=== PATIENT | male | born 1990 | race Caucasian/White ===

== ENCOUNTER 2020-08-10 23:07 | Emergency (ER) | payer MEDICARE, OTHER ==
[~2020-08-10] VITALS: Ht 185.4 cm; Wt 127.3 kg
[2020-08-10] MEDS ORDERED: NS 1,000 ML IV ONE (23:30)
[2020-08-10 23:35] LABS: BASO % 0.2 % (0.0-1.0); EOS # 0.1 10^3/uL (0.0-0.5); EOS % 0.6 % (0.0-3.0); HEMATOCRIT 47.1 % (42.0-52.0); HEMOGLOBIN 15.9 g/dl (13.5-17.5); LYMPH # 1.6 10^3/uL (1.5-5.0); LYMPH % 13.1 % (24.0-44.0); MEAN CORPUSCULAR HEMOGLOBIN 27.9 pg (27.0-33.0); MEAN CORPUSCULAR HGB CONC 33.8 g/dl (32.0-36.5); MEAN CORPUSCULAR VOLUME 82.6 fl (80.0-96.0); MONO # 1.1 10^3/uL (0.0-0.8); MONO % 8.7 % (0.0-5.0); NEUTROPHILS # 9.6 10^3/uL (1.5-8.5); NEUTROPHILS % 76.8 % (36.0-66.0); PLATELET COUNT, AUTOMATED 216 10^3/uL (150-450); WHITE BLOOD COUNT 12.4 10^3/uL (4.0-10.0)
--- NOTE | 2020-08-10 23:51 | REPVR ---
PROCEDURE INFORMATION: Exam: XR Chest, 1 View Exam date and time: 08/10/2020 11:32 PM Age: 29 years old Clinical indication: Other: Chest pain TECHNIQUE: Imaging protocol: XR of the chest Views: 1 view. COMPARISON: CR Chest, 2 view PA, Lat 07/23/2015 6:58 PM FINDINGS: Lungs: There is decreased inflation of the lungs. No focal infiltrates. Pleural space: Unremarkable. No pleural effusion. No pneumothorax. Heart/Mediastinum: Unremarkable. No cardiomegaly. Bones/joints: Unremarkable. IMPRESSION: Negative poor inspiratory chest with little change from 07/23/2015. Electronically signed by: Ismael Millan On 08/10/2020 23:50:34 PM
[2020-08-10 23:52] LABS: INR 0.92; PROTHROMBIN TIME 12.5 SECONDS (12.5-14.3)
[2020-08-11 00:23] LABS: ALBUMIN 3.6 GM/DL (3.2-5.2); ALT/SGPT 45 U/L (12-78); BILIRUBIN,DIRECT < 0.1 MG/DL (0.0-0.2); BILIRUBIN,TOTAL 0.4 MG/DL (0.2-1.0); CK-MB VALUE MASS 1.8 NG/ML (<3.6); CPK CREATINE PHOSPHOKINASE 191 U/L (39-308); FREE T4 0.83 NG/DL (0.76-1.46); LIPASE 123 U/L (73-393); MAGNESIUM LEVEL 1.9 MG/DL (1.8-2.4); MB/CK RELATIVE INDEX 0.94 (< OR =4); NT-PRO BNP 13 PG/ML (<125); THYROID STIMULATING HORMONE 0.471 uIU/ML (0.358-3.740); TOTAL PROTEIN 7.3 GM/DL (6.4-8.2); TROPONIN I < 0.02 NG/ML (< 0.10)
[2020-08-11 01:00] LABS: AMPHETAMINES LEVEL URINE NEGATIVE (NEGATIVE); BARBITURATES URINE NEGATIVE (NEGATIVE); BENZODIAZEPINES URINE NEGATIVE (NEGATIVE); CANNABINOIDS URINE POSITIVE (NEGATIVE); COCAINE METABOLITE URINE NEGATIVE (NEGATIVE); METHADONE URINE NEGATIVE (NEGATIVE); OPIATES URINE NEGATIVE (NEGATIVE); PHENCYCLIDINE URINE NEGATIVE (NEGATIVE)
[2020-08-11] MEDS ORDERED: ISOVUE-370 76% 100ML VIAL As Ordered ONE (01:27)
[2020-08-11] MEDS ORDERED: NS 1,000 ML IV ONE (01:30)
--- NOTE | 2020-08-11 02:17 | REPVR ---
PROCEDURE INFORMATION: Exam: CT Angiography Chest With Contrast Exam date and time: 08/11/2020 1:20 AM Age: 29 years old Clinical indication: Other: Tachycardia; Additional info: Tachycradia, leg pain, travel TECHNIQUE: Imaging protocol: Computed tomographic angiography of the chest with intravenous contrast. 3D rendering (Not supervised by radiologist): MIP and/or 3D reconstructed images were created by the technologist. Radiation optimization: All CT scans at this facility use at least one of these dose optimization techniques: automated exposure control; mA and/or kV adjustment per patient size (includes targeted exams where dose is matched to clinical indication); or iterative reconstruction. Contrast material: ISO; Contrast volume: 75 ml; Contrast route: INTRAVENOUS (IV); COMPARISON: CR PORTABLE CHEST X-RAY 08/10/2020 11:30 PM FINDINGS: Pulmonary arteries: The main pulmonary artery measures 25 mm. No central pulmonary embolism is identified. Aorta: The ascending thoracic aorta measures 33 mm. Lungs: Scattered bilateral pulmonary nodules or possibly focal areas of consolidation which are greatest in the posterior left upper lobe which is irregular and measures approximately the 13 x 8 x 11 mm. Numerous additional nodules or rounded densities are noted bilaterally with some appearing more as ground-glass nodules, particularly in the posterior left lower lobe measuring 8 mm in diameter. Pleural space: Unremarkable. No pneumothorax. No pleural effusion. Heart: Unremarkable. No cardiomegaly. No pericardial effusion. Mediastinal space: There is soft tissue conforming to the anterior mediastinum consistent with residual thymic tissue. There is motion artifact with image degradation in the lungs and mediastinum. Lymph nodes: Unremarkable. No enlarged lymph nodes. Liver: The liver attenuation is 30 Hounsfield units and the spleen is 63 Hounsfield units. Bones/joints: Unremarkable. No acute fracture. Soft tissues: Unremarkable. IMPRESSION: 1. Numerous scattered bilateral pulmonary nodules which are greatest in the posterior aspect of the left upper lobe. If the patient does not have known cancer, follow up should be based on clinical information because of the low risk of cancer in this age group. (Reference: Suzi) 2. Otherwise negative CTA chest. No central pulmonary embolism is identified. REFERENCES: Suzi Landin et al. Guidelines for Management of Incidental Pulmonary Nodules Detected on CT Images: From the Fleischner Society 2017. Radiology. 2017;284(1):228-243. Electronically signed by: Ismael Millan On 08/11/2020 02:16:51 AM
[2020-08-11] MEDS ORDERED: [UNRECOGNIZED DRUG - OTHER] ×2 (03:01→03:04)
[2020-08-11 03:15] VITALS: BP 133/69
--- NOTE | 2020-08-11 08:09 | ECGEPIP ---
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
--- NOTE | 2020-08-12 08:07 | ED PDOC ---
Post-Departure Follow-Up edwin nguyen faxed formal report of cta chest for fu Carlos Posada MD Aug 12, 2020 08:07
== END 2020-08-11 03:32 | disposition home or self-care (01) ==
LOC: M ED 23:07
DX: R00.2 Palpitations (principal); F41.9 Anxiety disorder, unspecified; K21.9 Gastro-esophageal reflux disease without esophagitis; Z88.0 Allergy status to penicillin; F17.210 Nicotine dependence, cigarettes, uncomplicated
CPT/HCPCS: 36415; 71045; 71275; 80047; 80076; 80307; 82550; 82553; 83605; 83690; 83735; 83880; 84439; 84443; 84484; 85025; 85610; 85730; 93005; 93041; 94760; 99285; Q9967

== ENCOUNTER → 2021-01-05 | Outpatient (CLI) | payer MEDICARE, MEDICAID ==
[~2021-01-05] MED LIST: [UNRECOGNIZED DRUG - OTHER]
--- NOTE | 2021-01-05 10:53 | REP ---
INDICATION: ABN FINDING OF LUNG. COMPARISON: Chest CT studies dated 08/11/2020 and outside study dated 11/28/2020. TECHNIQUE: CT of the chest without IV contrast. FINDINGS: There are the following lung nodules. These are all unchanged from the prior studies. Image 22, left upper lobe, 8 mm. Image 37, left upper lobe, 5 mm. Image 40, right lower lobe medially, 6 mm. Image 43, left upper lobe, 5 mm. Image 52, right lower lobe medially, 8 mm. Image 60, left lower lobe, 9 mm. Image 63, right lower lobe, 7 mm. Image 67, right lower lobe, 7 mm. Image 69, right lower lobe, 11 mm. There are no new lung nodules. There are no enlarging lung nodules. There are subcarinal lymph nodes measuring up to 2.1 cm short axis. This is unchanged from 11/28/2020 but not definitely present on 08/11/2020 There is no axillary lymph node enlargement. The study is insensitive for hilar lymph node enlargement in the absence of IV contrast. The thoracic aorta is unremarkable. Cardiac size is normal. There is no pericardial effusion. Upper abdomen: There is no adrenal nodule or mass. The spleen is enlarged measuring 16 cm AP diameter. This is unchanged. The pancreas is unremarkable. IMPRESSION: Multiple stable lung nodules as identified. There are no new lung nodules. There are no enlarging nodules. Subcarinal lymph nodes unchanged from 11/28/2020 a definite present on 08/11/2020. Splenomegaly. <Electronically signed by Tomas Garrison > 01/05/21 [id number]
== END ==
LOC: M RAD 07:07
PROVIDERS: ATTEND Physician Assistant
DX: R91.8 Other nonspecific abnormal finding of lung field (principal)

== ENCOUNTER → 2021-01-11 | Outpatient (REF) | payer MEDICARE, MEDICAID ==
[2021-01-11 17:44] LABS: BASO # 0.1 10^3/uL (0.0-0.2); BASO % 0.6 % (0.0-1.0); EOS # 0.1 10^3/uL (0.0-0.5); EOS % 1.4 % (0.0-3.0); HEMOGLOBIN 17.1 g/dl (13.5-17.5); LYMPH # 1.3 10^3/uL (1.5-5.0); LYMPH % 14.7 % (24.0-44.0); MEAN CORPUSCULAR HEMOGLOBIN 27.3 pg (27.0-33.0); MEAN CORPUSCULAR HGB CONC 33.5 g/dl (32.0-36.5); MEAN CORPUSCULAR VOLUME 81.5 fl (80.0-96.0); MONO # 0.6 10^3/uL (0.0-0.8); MONO % 6.9 % (2.0-8.0); NEUTROPHILS # 6.8 10^3/uL (1.5-8.5); NEUTROPHILS % 75.8 % (36.0-66.0); PLATELET COUNT, AUTOMATED 218 10^3/uL (150-450); RED BLOOD COUNT 6.26 10^6/uL (4.30-6.10)
[2021-01-11 18:16] LABS: ALBUMIN 3.9 GM/DL (3.2-5.2); ALT/SGPT 40 U/L (12-78); BILIRUBIN,DIRECT 0.1 MG/DL (0.0-0.2); BILIRUBIN,TOTAL 0.4 MG/DL (0.2-1.0); C REACTIVE PROTEIN QUANTITATIV 0.79 MG/DL (0.00-0.30); CALCIUM LEVEL 9.2 MG/DL (8.5-10.1); CREATININE FOR GFR 0.82 MG/DL (0.70-1.30); ERYTHROCYTE SEDIMENTATION RATE 5 mm/hr (0-15); GLOMERULAR FILTRATION RATE > 60.0 (>60); RHEUMATOID FACTOR QUANT < 10.0 IU/ML (<15.0); TOTAL PROTEIN 7.3 GM/DL (6.4-8.2)
== END ==
LOC: M LAB REF 16:51
PROVIDERS: ATTEND Physician Assistant
DX: R91.8 Other nonspecific abnormal finding of lung field (principal)

== ENCOUNTER → 2021-02-04 | Outpatient (CLI) | payer MEDICARE, MEDICAID ==
[~2021-02-04] MED LIST changes: +ALBU8.5H; +CITA40TA4; +PANT40TA29; +TRAM50TA2; +TRAZ-252
== END ==
LOC: M LABSMTC 08:30
PROVIDERS: ATTEND Anesthesiology
DX: Z01.818 Encounter for other preprocedural examination (principal); Z20.822 Contact with and (suspected) exposure to COVID-19

== ENCOUNTER 2021-02-08 06:21 | Day surgery (SDC) | payer MEDICARE, MEDICAID ==
[~2021-02-08] VITALS: Ht 185.4 cm; Wt 122.9 kg
[2021-02-08] MEDS ORDERED: propofoL 200 MG/20 ML VIAL ONE (06:22)
[2021-02-08] MEDS ORDERED: MIDAZOLAM INJ 2MG/2ML VIAL (J2250 PER 1MG) ONE (06:22)
[2021-02-08] MEDS ORDERED: ACETAMINOPHEN 1000MG 100ML IV BTL (OFIRMEV) (J0131 PER 10MG) ONE (06:22)
[2021-02-08] MEDS ORDERED: ROCURONIUM BROMIDE 50 MG/5 ML VIAL ONE (06:22)
[2021-02-08] MEDS ORDERED: LIDOCAINE 2% 100MG/5ML SDV (FOR ANES.) ONE (06:22)
[2021-02-08] MEDS ORDERED: dexameTHASONE 4 MG/ML 1ML VIAL (J1100 PER 1MG) ONE (06:22)
[2021-02-08] MEDS ORDERED: ONDANSETRON 4MG/2ML VIAL ONE (06:22)
[2021-02-08] MEDS ORDERED: fentaNYL 100 MCG/2 ML INJECTION (J3010) ONE (06:22)
[2021-02-08] MEDS ORDERED: LIDOCAINE 4% INJ 5ML AMP NEB ONE (07:20)
[2021-02-08] MEDS ORDERED: ALBUTEROL SULFATE 2.5 MG/0.5 ML INH NEB SOLN NEB ONE (07:20)
[2021-02-08] MEDS ORDERED: SUGAMMADEX SODIUM 500 MG/5 ML VIAL (BRIDION) As Ordered ONE (07:25)
[2021-02-08] MEDS ORDERED: THROMBIN SOLN 5,000 UNITS VIAL As Ordered ONE (07:26)
[2021-02-08] MEDS ORDERED: EPINEPHrine 1MG/10ML SYRINGE 1.5IN As Ordered ONE (07:26)
[2021-02-08] MEDS ORDERED: CETACAINE SPRAY 5GM As Ordered ONE (07:26)
[2021-02-08] MEDS ORDERED: LR 1,000 ML IV ONE (07:34)
[2021-02-08] MEDS ORDERED: LIDOCAINE 1% MDV 20ML VIAL SQ PRN (07:34)
[2021-02-08] MEDS ORDERED: fentaNYL 100 MCG/2 ML INJECTION (J3010) IV PRN (08:50)
[2021-02-08] MEDS ORDERED: PERCOCET 5MG/325MG TAB PO PRN (08:50)
[2021-02-08] MEDS ORDERED: METOCLOPRAMIDE INJ 10MG/2ML VIAL (J2765 PER 1) IV PRN (08:50)
[2021-02-08] MEDS ORDERED: ONDANSETRON 4MG/2ML VIAL IV PRN (08:50)
[2021-02-08] MEDS ORDERED: LR 1,000 ML IV SCH (08:50)
--- NOTE | 2021-02-08 08:57 | RO ---
OPERATIVE NOTE DATE OF OPERATION: 02/08/2021 PREOPERATIVE DIAGNOSIS: Mediastinal adenopathy. POSTOPERATIVE DIAGNOSIS: Mediastinal adenopathy. FINDINGS: Splaying of the anne. PROCEDURE: Bronchoscopy with endobronchial ultrasound and fine needle aspiration and bronchoalveolar lavage. PROCEDURALIST: Adriano English D.O. BANK VAULT CUSTODIAN: None. SPECIMENS OBTAINED: 1. FNA subcarinal and left hilar node for cytology. 2. FNA left hilar node for culture fungal and bacterial. 3. Right middle lobe bronchoalveolar lavage (BAL) for bacterial, fungal, and AFB. ANESTHESIA: General; please refer to their records for details. ESTIMATED BLOOD LOSS: Minimal. DRAINS: None. DESCRIPTION OF PROCEDURE: The patient was brought back to OR #8, after informed consent was reviewed in the preoperative area, he was placed in the supine position. Anesthesia intubated the patient with an 8.5 endotracheal tube and the case was handed over to me. A time-out was performed with two patient identifiers, identifying the correct site and correct procedure. His name and date of were correlated with radiology in the room. 1T190 bronchoscope was then inserted endotrachealy. Trachea was midline. Anne was slightly splayed. Right and left mainstem bronchi were otherwise normal with minimal secretions. RB1 through 10 was normal without endobronchial lesions and some minimal splaying of the right hilum. The left mainstem bronchus was normal. LB1 through 10 was normal without endobronchial lesion. Bronchoscope was removed and an endobronchial linear scope was then inserted. Upon viewing the subcarinal node from the right, there was a very large subcarinal node measuring approximately 2 cm. FNAs were taken of this abnormality. It did appear that the samples were necrotic, pus-like. I then took an FNA for culture. After adequate sampling, I then went to the right hilar area where there was not any significant node for sampling. I then went to the left hilar area where there was an enlarged lymph node approximately 1 cm in size. FNA was taken of this lesion. Again, more necrotic-like material resulted. No collection was sent for RPMI was there did not appear to be a large amount of viable cells and did not appear to be lymphoma-like. Cells collected for cell block. After adequate sampling, endobronchial ultrasound was removed. The 1T190 bronchoscope was reinserted and hemostasis was assured. I then performed a BAL of the right middle lobe to send off for culture both bacterial, fungal, and AFB. The bronchoscope was removed, the patient was extubated, and is in recovery. A postprocedure chest x-ray is pending. [facility]
[2021-02-08 09:09] VITALS: BP 138/63
--- NOTE | 2021-02-08 09:11 | REP ---
INDICATION: POST OP BRONCH IN PACU 9. COMPARISON: 08/10/2020. TECHNIQUE: Single portable AP view of the chest was performed. FINDINGS: There is no pneumothorax. There is no infiltrate in either lung. Cardiac silhouette is unchanged. There is a prominent left hilar shadow. IMPRESSION: No pneumothorax status post bronchoscopy. <Electronically signed by Tomas Livingston > 02/08/21 [id number]
== END 2021-02-08 09:30 | disposition home or self-care (01) ==
LOC: M SDC 06:21
PROVIDERS: ATTEND Internal Medicine Pulmonary Disease
DX: R59.0 Localized enlarged lymph nodes (principal); R91.8 Other nonspecific abnormal finding of lung field; K21.9 Gastro-esophageal reflux disease without esophagitis; F17.218 Nicotine dependence, cigarettes, with other nicotine-induced disorders; F41.9 Anxiety disorder, unspecified; F32.9 Major depressive disorder, single episode, unspecified; M17.11 Unilateral primary osteoarthritis, right knee; R00.2 Palpitations; R06.83 Snoring; R06.02 Shortness of breath; Z79.899 Other long term (current) drug therapy; Z88.0 Allergy status to penicillin
CPT/HCPCS: 31624; 31629; 31652; 71045; 87070; 87077; 87102; 87116; 87205; 87206; 88173; 88305; 88312; J0131; J1100; J2250; J2405; J3010

== ENCOUNTER → 2021-07-18 | Outpatient (CLI) | payer MEDICARE, MEDICAID ==
--- NOTE | 2021-07-18 16:38 | REP ---
INDICATION: HISTOPLASMOSIS, UNSPECIFIED COMPARISON: Multiple prior examinations dating through 08/11/2020 TECHNIQUE: Axial noncontrast images from the thoracic inlet to the upper abdomen with coronal and sagittal reformations. This CT examination was performed using the following dose reduction techniques: Automated exposure control, adjustment of mA and/or kv according to the patient's size, and use of iterative reconstruction technique. FINDINGS: Lung keyes are well aerated and again demonstrate scattered bilateral noncalcified nodules measuring up to approximately 9.2 mm in the subpleural left lower lobe (series 201; image 55) along with significant mediastinal and hilar adenopathy consistent with the given history of histoplasmosis. No acute consolidation. No effusion. No pneumothorax. Tracheobronchial tree is patent. Further evaluation of the mediastinum demonstrates normal thoracic aorta, pulmonary vasculature, and heart/pericardium. Musculoskeletal structures are intact. IMPRESSION: Pulmonary nodules and adenopathy similar to prior examination and consistent with the given history of histoplasmosis. <Electronically signed by Justus Bentley > 07/18/21 1817
== END ==
LOC: M RAD 16:12
PROVIDERS: ATTEND Internal Medicine Pulmonary Disease
DX: R91.8 Other nonspecific abnormal finding of lung field (principal); B39.9 Histoplasmosis, unspecified

== ENCOUNTER 2022-11-19 14:29 | Emergency (ER) | payer MEDICARE, MEDICAID ==
[~2022-11-19] VITALS: Ht 182.9 cm; Wt 131.7 kg
[~2022-11-19 14:29] MED LIST changes: -CITA40TA4; +CITA40TA7
[2022-11-19 15:28] LABS: BASO % 0.4 % (0.0-1.0); EOS # 0.1 10^3/uL (0.0-0.5); EOS % 0.9 % (0.0-3.0); HEMATOCRIT 48.7 % (42.0-52.0); HEMOGLOBIN 16.6 g/dl (13.5-17.5); LYMPH # 2.2 10^3/uL (1.5-5.0); LYMPH % 21.2 % (24.0-44.0); MEAN CORPUSCULAR HEMOGLOBIN 28.6 pg (27.0-33.0); MEAN CORPUSCULAR HGB CONC 34.1 g/dl (32.0-36.5); MONO % 9.1 % (2.0-8.0); NEUTROPHILS # 7.2 10^3/uL (1.5-8.5); PLATELET COUNT, AUTOMATED 210 10^3/uL (150-450); WHITE BLOOD COUNT 10.6 10^3/uL (4.0-10.0)
[2022-11-19 15:51] LABS: ALBUMIN 3.9 G/DL (3.2-5.2); ALKALINE PHOSPHATASE 118 U/L (46-116); ALT/SGPT 41 U/L (7.0-40); AST/SGOT 30 U/L (<34); BILIRUBIN,DIRECT 0.1 MG/DL (<0.4); BILIRUBIN,TOTAL 0.6 MG/DL (0.3-1.2); BLOOD UREA NITROGEN 15 MG/DL (9-23); CALCIUM LEVEL 9.8 MG/DL (8.5-10.1); CARBON DIOXIDE LEVEL 29 MMOL/L (20-31); CHLORIDE LEVEL 106 MMOL/L (98-107); CK-MB VALUE MASS < 1.0 NG/ML (<3.6); CREATININE FOR GFR 0.91 MG/DL (0.70-1.30); GLOMERULAR FILTRATION RATE > 60.0 (>60); GLUCOSE, FASTING 94 MG/DL (60-100); POTASSIUM SERUM 4.2 MMOL/L (3.5-5.1); SODIUM LEVEL 141 MMOL/L (136-145); TOTAL PROTEIN 7.2 G/DL (5.7-8.2)
[2022-11-19 15:56] LABS: CPK CREATINE PHOSPHOKINASE 97 U/L (46-171); MB/CK RELATIVE INDEX 1.03 (< OR =4)
[2022-11-19 20:00] VITALS: BP 146/95
[2022-11-19] MEDS ORDERED: ISOVUE-370 76% 100ML VIAL As Ordered ONE (22:25)
== END 2022-11-19 23:55 | disposition home or self-care (01) ==
LOC: M ED 14:29
DX: R91.8 Other nonspecific abnormal finding of lung field (principal); R59.0 Localized enlarged lymph nodes; R94.31 Abnormal electrocardiogram [ECG] [EKG]; K21.9 Gastro-esophageal reflux disease without esophagitis; F41.9 Anxiety disorder, unspecified; F32.A Depression, unspecified; F17.210 Nicotine dependence, cigarettes, uncomplicated; Z88.0 Allergy status to penicillin; Z86.19 Personal history of other infectious and parasitic diseases; Z98.890 Other specified postprocedural states; Z82.49 Family history of ischemic heart disease and other diseases of the circulatory system
CPT/HCPCS: 71046; 71275; 80048; 80076; 82550; 82553; 84484; 85025; 93005; 99284; Q9967

== ENCOUNTER 2024-02-04 10:25 | Emergency (ER) | payer MEDICARE, MEDICAID ==
[~2024-02-04] VITALS: Ht 182.9 cm; Wt 136.1 kg
[~2024-02-04 10:25] MED LIST changes: -ALBU8.5H; +ALBU8.5H PO; -CITA40TA7; +CITA40TA7 PO; -PANT40TA29; +PANT40TA29 PO; -TRAM50TA2; +TRAM50TA2 PO; -TRAZ-252; +TRAZ-252 PO
[2024-02-04 10:52] LABS: BASO % 0.3 % (0.0-1.0); EOS # 0.1 10^3/uL (0.0-0.5); EOS % 0.9 % (0.0-3.0); HEMATOCRIT 48.4 % (42.0-52.0); HEMOGLOBIN 16.8 g/dl (13.5-17.5); LYMPH # 1.4 10^3/uL (1.5-5.0); LYMPH % 11.3 % (24.0-44.0); MEAN CORPUSCULAR HEMOGLOBIN 28.5 pg (27.0-33.0); MEAN CORPUSCULAR HGB CONC 34.7 g/dl (32.0-36.5); MONO % 8.6 % (2.0-8.0); NEUTROPHILS # 9.4 10^3/uL (1.5-8.5); NEUTROPHILS % 78.2 % (36.0-66.0); PLATELET COUNT, AUTOMATED 198 10^3/uL (150-450)
[2024-02-04] MEDS: NS 500 ML IV ONE ×2 (11:09→12:57)
[2024-02-04 11:22] LABS: ETHYL ALCOHOL (ETHANOL) < 0.003 % (0.000-0.010)
[2024-02-04 11:24] LABS: ALBUMIN 4.2 G/DL (3.2-5.2); ALKALINE PHOSPHATASE 117 U/L (46-116); ALT/SGPT 57 U/L (7.0-40); AST/SGOT 39 U/L (<34); BILIRUBIN,DIRECT 0.3 MG/DL (<0.4); BILIRUBIN,TOTAL 0.8 MG/DL (0.3-1.2); BLOOD UREA NITROGEN 11 MG/DL (9-23); CALCIUM LEVEL 8.6 MG/DL (8.5-10.1); CARBON DIOXIDE LEVEL 26 MMOL/L (20-31); CHLORIDE LEVEL 105 MMOL/L (98-107); CREATININE FOR GFR 0.85 MG/DL (0.70-1.30); GLOMERULAR FILTRATION RATE > 60.0 (>60); GLUCOSE, FASTING 126 MG/DL (60-100); POTASSIUM SERUM 3.6 MMOL/L (3.5-5.1); SALICYLATE LEVEL < 3.0 MG/DL (<30); SODIUM LEVEL 138 MMOL/L (136-145); TOTAL PROTEIN 6.9 G/DL (5.7-8.2)
[2024-02-04] MEDS ORDERED: BUSP5TA PO (12:02)
[2024-02-04] MEDS ORDERED: HOME MED LIST COMPLETE! XX SCH (12:05)
[2024-02-04 12:34] LABS: AMPHETAMINES LEVEL URINE NEGATIVE (NEGATIVE); BARBITURATES URINE NEGATIVE (NEGATIVE); BENZODIAZEPINES URINE NEGATIVE (NEGATIVE); COCAINE METABOLITE URINE NEGATIVE (NEGATIVE); METHADONE URINE NEGATIVE (NEGATIVE); OPIATES URINE NEGATIVE (NEGATIVE); PHENCYCLIDINE URINE NEGATIVE (NEGATIVE)
[2024-02-04 12:35] LABS: CANNABINOIDS URINE POSITIVE (NEGATIVE)
[2024-02-04 13:41] VITALS: BP 126/85; TEMP 98.1; O2SAT 96
== END 2024-02-04 13:53 | disposition home or self-care (01) ==
LOC: M ED 10:25 → EDBD 10:25 → M ED 13:53
DX: R56.9 Unspecified convulsions (principal); K21.9 Gastro-esophageal reflux disease without esophagitis; F41.9 Anxiety disorder, unspecified; F32.A Depression, unspecified; Z87.891 Personal history of nicotine dependence; Z79.899 Other long term (current) drug therapy; Z88.0 Allergy status to penicillin

== ENCOUNTER → 2024-02-24 | Outpatient (CLI) | payer MEDICARE, MEDICAID ==
[~2024-02-24] MED LIST changes: +BUSP5TA PO
== END ==
LOC: M RAD 06:42
PROVIDERS: ATTEND Physician Assistant Medical
DX: G40.909 Epilepsy, unspecified, not intractable, without status epilepticus (principal)

== ENCOUNTER → 2024-03-13 | Outpatient (CLI) | payer MEDICARE, MEDICAID | LOC: M SLEEP 08:06 | PROVIDERS: ATTEND Physician Assistant Medical | DX: G40.89 Other seizures (principal) ==

== ENCOUNTER → 2024-06-26 | Outpatient (CLI) | payer MEDICARE, MEDICAID ==
[~2024-06-26] MED LIST changes: +GASTROGRAFIN SOLUTION 30ML As Ordered ONE; +ISOVUE-370 76% 100ML VIAL As Ordered ONE
== END ==
LOC: M RAD 09:25
PROVIDERS: ATTEND Physician Assistant Medical
DX: K76.0 Fatty (change of) liver, not elsewhere classified (principal); R19.7 Diarrhea, unspecified; R16.1 Splenomegaly, not elsewhere classified; M48.061 Spinal stenosis, lumbar region without neurogenic claudication
CPT/HCPCS: 74177; Q9963; Q9967